=== PATIENT | male | born 1965 | race Caucasian/White ===

== ENCOUNTER 2018-05-31 12:09 | Emergency (ER) | payer BC ==
[2018-05-31 12:46] VITALS: BP 153/82; PULSE 69; RESP 18; TEMP 97.2
[2018-05-31] MEDS ORDERED: KETOROLAC 60 MG/2 ML VIAL IM STA (12:53)
[2018-05-31] MEDS ORDERED: LIDOCAINE 5% PATCH TOPICAL STA (12:53)
--- NOTE | 2018-05-31 12:56 | ED ---
General Adult HPI - General Chief complaint: Back Pain/Injury Stated complaint: BACK PAIN Time Seen by Provider: 05/31/18 12:37 Source: patient, RN notes reviewed Mode of arrival: ambulatory Limitations: no limitations - History of Present Illness Initial comments: Patient 53-year-old male presented to the emergency room today with chief complaint of increased lower back pain with radiation down the left leg. Patient states that pain radiates down the left foot. He admits that symptoms started this past weekend. He states his was admitted to the hospital he was sleeping in a chair. He states he woke up the following morning with increased pain in his lower back. Patient does admit the pain is worse with bending. Patient denies any bowel or bladder incontinence or retention. He denies any saddle anesthesia. Patient states that she tried some ibuprofen a few times but has had little relief. He doesn't that he went to chiropractor had x-rays performed recently. He states that they were talking about possible slipped disc. Patient was advised follow-up with orthopedics. He did make an appointment but is not until June 07. He states he called his family doctor was advised coming here to the emergency room. States is currently not taking any medicines for this. Patient denies any recent fever, chills, shortness of breath, chest pain, abdominal pain, nausea or vomiting, numbness or tingling, headaches or visual changes, or any other complaints. - Related Data Home Medications Medication Instructions Recorded Confirmed glipiZIDE/METFORMIN HCL 5 tab PO ONCE 08/04/14 08/04/14 [glipiZIDE/METFORMIN HCL 5-500 mg] metFORMIN HCL [Glucophage] 500 mg PO BID 08/04/14 08/04/14 Previous Rx's Medication Instructions Recorded Cyclobenzaprine [Flexeril] 10 mg PO TID #20 tab 05/31/18 Dexamethasone 0.75 mg PO DIRECTED #12 tablet 05/31/18 Ibuprofen [Motrin] 600 mg PO Q6HR PRN #40 day 05/31/18 Lidocaine [Lidoderm 5% Patch] 1 patch TRANSDERM DAILY #7 patch 05/31/18 Allergies Allergy/AdvReac Type Severity Reaction Status Date / Time No Known Allergies Allergy Verified 05/31/18 12:53 Review of Systems ROS Statement: Those systems with pertinent positive or pertinent negative responses have been documented in the HPI. ROS Other: All systems not noted in ROS Statement are negative. Past Medical History Past Medical History: Diabetes Mellitus History of Any Multi-Drug Resistant Organisms: None Reported Past Surgical History: Orthopedic Surgery Additional Past Surgical History / Comment(s): arthrooscopy left knee Past Anesthesia/Blood Transfusion Reactions: No Reported Reaction Past Psychological History: No Psychological Hx Reported Smoking Status: Former smoker Past Alcohol Use History: Occasional Past Drug Use History: None Reported General Exam - General Exam Comments Initial Comments: General: The patient is awake and alert, in no distress, and does not appear acutely ill. Eye: Pupils are equal, round and reactive to light. Extra-ocular movements are intact. No nystagmus. There is normal conjunctiva bilaterally. No signs of icterus. Ears, nose, mouth and throat: There are moist mucous membranes and no oral lesions. Neck: The neck is supple, there is no tenderness or JVD. Cardiovascular: There is a regular rate and rhythm. No murmur, rub or gallop is appreciated. Respiratory: Lungs are clear to auscultation, respirations are non-labored, breath sounds are equal. No wheezes, stridor, rales, or rhonchi. Musculoskeletal: Normal ROM. Normal appearance of some cervical, thoracic, lumbar spine. No step-off. No tenderness midline over the spinous processes. Patient does have paravertebral tenderness at L3L4 left side of the spine. Sensation intact. Strength 5/5. Pulses equal bilaterally 2+. Neurological: A&O x 3. CN II-XII intact, There are no obvious motor or sensory deficits. Coordination appears grossly intact. Speech is normal. Skin: Skin is warm and dry and no rashes or lesions are noted. Psychiatric: Cooperative, appropriate mood & affect, normal judgment. Limitations: no limitations Course Vital Signs 05/31/18 12:42 Temperature 97.2 F L Pulse Rate 69 Respiratory 18 Rate Blood Pressure 153/82 O2 Sat by Pulse 98 Oximetry Medical Decision Making - Medical Decision Making 52-year-old male presented to the emergency room for back pain that started after sleeping in a chair. Patient's pain reproduced on palpation to lower back. He does have radiation going down left leg. There is no bowel or bladder incontinence retention. No saddle anesthesia. Patient had recent x- rays performed. Patient does have point with orthopedics. Patient is not taking any medicines. Will be given anti-inflammatories, muscle relaxant, Lidoderm patch, and steroids. Patient is type II diabetic. Advised that this will affect his blood sugars. He is advised follow-up over the next 2 days return if symptoms increase worsen. Disposition Clinical Impression: Lumbar radiculopathy, acute Disposition: HOME SELF-CARE Condition: Good Instructions: Acute Low Back Pain (ED) Additional Instructions: Please use medication as discussed. Please follow-up with family doctor in the next 2 days of symptoms have not improved. Please return to emergency room if the symptoms increase or worsen or for any other concerns. Prescriptions: Cyclobenzaprine [Flexeril] 10 mg PO TID #20 tab Dexamethasone 0.75 mg PO DIRECTED #12 tablet Ibuprofen [Motrin] 600 mg PO Q6HR PRN #40 day PRN Reason: Pain Lidocaine [Lidoderm 5% Patch] 1 patch TRANSDERM DAILY #7 patch Is patient prescribed a controlled substance at d/c from ED?: No Referrals: Vik Choudhary DO [Primary Care Provider] - 1-2 days Time of Disposition: 12:56
== END 2018-05-31 13:31 | disposition home or self-care (01) ==
LOC: EC 12:09
DX: M54.16 Radiculopathy, lumbar region (principal); E11.9 Type 2 diabetes mellitus without complications; Z87.891 Personal history of nicotine dependence; Z79.84 Long term (current) use of oral hypoglycemic drugs
CPT/HCPCS: 96372; 99283

== ENCOUNTER → 2018-06-15 | Outpatient (CLI) | payer BC ==
--- NOTE | 2018-06-19 07:29 | NM ---
EXAMINATION TYPE: NM bone scan whole body DATE OF EXAM: 06/15/2018 COMPARISON: MR lumbar spine from outside institution 06/06/2018 HISTORY: Abnormal lumbar MRI, low back pain Delayed whole-body scanning was performed following the injection of 23.4 mCi Tc 99m MDP. Images acq uired 3 hours post injection. FINDINGS: Mild uptake in the lower lumbar spine compatible with degenerative disc disease. Remainder of the ske leton remarkable for mild uptake within the feet, knees, hips, shoulders and sternoclavicular joints likely due to degenerative change. Uptake within the maxilla and mandible likely due to periodontal d isease. No areas of abnormal increased or decreased uptake to suggest metastatic disease. Soft tissue uptake is normal. IMPRESSION: Metastatic disease is not evident. No corresponding hypermetabolic uptake on bone scan to the abnorma lities identified on lumbar spine MRI.
== END | disposition home or self-care (01) ==
LOC: RADNMMAIN 10:07
PROVIDERS: ATTEND Physical Medicine & Rehabilitation
DX: M54.16 Radiculopathy, lumbar region (principal); M41.26 Other idiopathic scoliosis, lumbar region; M16.0 Bilateral primary osteoarthritis of hip; E11.9 Type 2 diabetes mellitus without complications
CPT/HCPCS: 78306; A9503

== ENCOUNTER → 2019-04-17 | Outpatient (CLI) | payer OTHER ==
--- NOTE | 2019-04-17 15:15 | US ---
EXAMINATION TYPE: US pelvic limited DATE OF EXAM: 04/17/2019 COMPARISON: NONE CLINICAL HISTORY: R35.0 frequency of micturition. Pt states weak urine stream, unable to completely e mpty bladder Bladder appeared wnl, bilateral jets visualized Bladder volume= 221 ml Post void volume= 124 ml, normal is 50 mL. Impressions: 1. Moderate post void residual
== END | disposition home or self-care (01) ==
LOC: RADUSWWP 12:08
PROVIDERS: ATTEND Family Medicine
DX: N39.43 Post-void dribbling (principal)
CPT/HCPCS: 76857

== ENCOUNTER → 2019-06-10 | Outpatient (CLI) | payer MEDICAID ==
--- NOTE | 2019-06-10 15:47 | US ---
EXAMINATION TYPE: US bladder DATE OF EXAM: 06/10/2019 COMPARISON: US dated 04/17/2019 CLINICAL HISTORY: R33.9 Urinary Retention. EXAM MEASUREMENTS: Post Void Residual Volume: 123.8 mL Color Doppler performed to assess ureteral jets. Bilateral Jets seen: yes Normal Post Void Residual (less than 50ml): abnormal post void volume. Enlarged prostate is noted inferiorly/posteriorly and size = 37.5ml (normal prostate size is less than 30.0ml.) Patient requested copy of today's US to go to Dr Yandel Mejia. JJ IMPRESSION: 1. Abnormal post void residual within the urinary bladder measuring 123.8 mL. Neurogenic bladder or u rinary bladder outlet obstruction from prostatomegaly are considered. 2. Incidentally noted prostatomegaly.
== END ==
LOC: RADUSWWP 14:55
PROVIDERS: ATTEND Family Medicine
DX: R33.9 Retention of urine, unspecified (principal)
CPT/HCPCS: 76857

== ENCOUNTER → 2019-08-02 | Outpatient (CLI) | payer MEDICAID ==
[2019-08-02 14:35] LABS: Basophils # (A) 0.1 k/uL (0-0.2); Basophils % (A) 1 %; Eosinophils # (A) 0.4 k/uL (0-0.7); Eosinophils % (A) 5 %; HCT 48.4 % (39.0-53.0); HGB 16.2 gm/dL (13.0-17.5); Lymphocytes # (A) 1.9 k/uL (1.0-4.8); Lymphocytes % (A) 24 %; MCH 31.9 pg (25.0-35.0); MCHC 33.4 g/dL (31.0-37.0); MCV 95.5 fL (80.0-100.0); Mean Platelet Volume 6.8; Monocytes # (A) 0.4 k/uL (0-1.0); Monocytes % (A) 6 %; Neutrophils # (A) 4.8 k/uL (1.3-7.7); Neutrophils % (A) 63 %; Platelet Count 224 k/uL (150-450); RBC 5.07 m/uL (4.30-5.90); RDW 12.8 % (11.5-15.5); WBC 7.7 k/uL (3.8-10.6)
[2019-08-02 14:40] LABS: Appearance,Urine Clear (Clear); Bilirubin,Urine Negative (Negative); Blood,Urine Negative (Negative); Color,Urine Light Yellow; Glucose,Urine (UA) 4+ (Negative); Ketones,Urine Negative (Negative); Leukocyte Esterase,Urine Negative (Negative); Nitrite,Urine Negative (Negative); Protein,Urine Negative (Negative); Specific Gravity,Urine 1.027 (1.001-1.035); Urobilinogen,Urine <2.0 mg/dL (<2.0)
[2019-08-02 18:18] LABS: African American GFR (CKD) 97.8 (60.0-200.0); Albumin 4.5 g/dL (3.80-4.90); Albumin/Globulin Ratio 2.37 (1.60-3.17); Anion Gap 7.6 mmol/L (4.00-12.00); Carbon Dioxide 30.4 mmol/L (21.6-31.8); Globulin 1.9 g/dL (1.6-3.3); Non-African American GFR(CKD) 84.4 (60.0-200.0); Total Bilirubin 0.3 mg/dL (0.3-1.2); Total Protein 6.4 g/dL (6.2-8.2)
== END | disposition home or self-care (01) ==
LOC: LABWHC1 13:40
PROVIDERS: ATTEND Urology
DX: N40.1 Benign prostatic hyperplasia with lower urinary tract symptoms (principal)
CPT/HCPCS: 36415; 80053; 81003; 85025; 87086

== ENCOUNTER → 2019-08-03 | Outpatient (CLI) | payer MEDICAID ==
[2019-08-03 17:06] LABS: Chol/HDL Ratio 4.03; LDL Cholesterol,Calculated 66.8 mg/dL (0.0-131.0); VLDL Calculation 42.2 mg/dL (5.00-40.00)
[2019-08-03 18:41] LABS: Hemoglobin A1C 7.2 % (4.0-6.0)
== END | disposition home or self-care (01) ==
LOC: LABWHC1 08:13
PROVIDERS: ATTEND Family Medicine
DX: E11.65 Type 2 diabetes mellitus with hyperglycemia (principal)
CPT/HCPCS: 36415; 80061; 83036; 84450; 84460

== ENCOUNTER → 2019-09-04 | Outpatient (CLI) | payer MEDICAID | END | disposition home or self-care (01) | LOC: LABWHC1 09:02 | PROVIDERS: ATTEND Family Medicine | DX: R74.8 Abnormal levels of other serum enzymes (principal) | CPT/HCPCS: 36415; 84460 ==

== ENCOUNTER → 2020-11-12 | Outpatient (CLI) | payer MEDICAID ==
[2020-11-12 12:12] LABS: Appearance,Urine Clear (Clear); Bilirubin,Urine Negative (Negative); Blood,Urine Negative (Negative); Color,Urine Yellow; Glucose,Urine (UA) 4+ (Negative); Ketones,Urine 1+ (Negative); Leukocyte Esterase,Urine Negative (Negative); Nitrite,Urine Negative (Negative); Protein,Urine 1+ (Negative); RBC,Urine 1 /hpf (0-5); Specific Gravity,Urine 1.025 (1.001-1.035); Squamous Epithelial Cell,Urine <1 /hpf (0-4); Urobilinogen,Urine <2.0 mg/dL (<2.0); WBC,Urine 1 /hpf (0-5)
[2020-11-12 23:26] LABS: HCT 45.4 % (39.6-50.0); HGB 15.3 g/dL (13.0-17.0); MCHC 33.7 g/dL (32.0-37.0); MCV 97.8 fL (80.0-97.0); Mean Platelet Volume 11.3 fL (9.5-12.2); Platelet Count 196 X 10*3/uL (140-440); RBC 4.64 X 10*6/uL (4.40-5.60); RDW 12.8 % (11.5-14.5); WBC 8.08 X 10*3/uL (4.50-10.00)
[2020-11-13 02:59] LABS: T4, Free (Free Thyroxine) 1.1 ng/dL (0.80-1.80)
[2020-11-13 03:53] LABS: African American GFR (CKD) 97.1 (60.0-200.0); Albumin 4.7 g/dL (3.80-4.90); Albumin/Globulin Ratio 2.24 (1.60-3.17); Anion Gap 14.9 mmol/L (4.00-12.00); Calcium 9.9 mg/dL (8.7-10.3); Carbon Dioxide 20.1 mmol/L (21.6-31.8); Chol/HDL Ratio 5.64; Globulin 2.1 g/dL (1.6-3.3); Non-African American GFR(CKD) 83.8 (60.0-200.0); Potassium 4.4 mmol/L (3.5-5.5); Total Bilirubin 0.4 mg/dL (0.3-1.2); Total Protein 6.8 g/dL (6.2-8.2)
[2020-11-13 06:12] LABS: Urine Creatinine 82.3 mg/dL
== END | disposition home or self-care (01) ==
LOC: LABWHC1 10:55
PROVIDERS: ATTEND Family Medicine
DX: Z00.00 Encounter for general adult medical examination without abnormal findings (principal); E11.65 Type 2 diabetes mellitus with hyperglycemia; E66.9 Obesity, unspecified
CPT/HCPCS: 84439; 80061; 80053; 84443; 85027; 81001; 83721; 82306; 82043; 82570; 83036; 36415; G0103

== ENCOUNTER → 2020-12-01 | Outpatient (CLI) | payer MEDICAID | END | disposition home or self-care (01) | LOC: LABWHC1 12:52 | PROVIDERS: ATTEND Family Medicine | DX: R74.8 Abnormal levels of other serum enzymes (principal) | CPT/HCPCS: 36415; 84460 ==

== ENCOUNTER → 2020-12-16 | Outpatient (CLI) | payer MEDICAID ==
[2020-12-17 18:59] LABS: ALT 66 U/L (10-49); AST 36 U/L (14-35); Albumin/Globulin Ratio 2.33 (1.60-3.17); Alkaline Phosphatase 72 U/L (41-126); Bilirubin, Conjugated <0.20 mg/dL (0.20-0.40); GGT 68 U/L (0-73); Globulin 2.1 g/dL (1.6-3.3); Total Bilirubin 0.5 mg/dL (0.3-1.2)
== END | disposition home or self-care (01) ==
LOC: LABWHC1 12:49
PROVIDERS: ATTEND Family Medicine
DX: R74.8 Abnormal levels of other serum enzymes (principal)
CPT/HCPCS: 36415; 80076; 82977

== ENCOUNTER → 2021-01-26 | Outpatient (CLI) | payer MEDICAID ==
[2021-01-26 22:25] LABS: ALT 56 U/L (10-49); AST 26 U/L (14-35)
== END | disposition home or self-care (01) ==
LOC: LABWHC1 14:11
PROVIDERS: ATTEND Family Medicine
DX: R74.01 Elevation of levels of liver transaminase levels (principal)
CPT/HCPCS: 36415; 84450; 84460

== ENCOUNTER → 2021-02-18 | Outpatient (CLI) | payer MEDICAID ==
[2021-02-18 18:59] LABS: Basophils # (A) 0.08 X 10*3/uL (0.00-0.10); Basophils % (A) 0.8 %; Eosinophils # (A) 0.74 X 10*3/uL (0.04-0.35); Eosinophils % (A) 7.6 %; HCT 47.7 % (39.6-50.0); HGB 15.9 g/dL (13.0-17.0); Lymphocytes # (A) 2.14 X 10*3/uL (0.90-5.00); MCH 32.1 pg (27.0-32.0); MCHC 33.3 g/dL (32.0-37.0); MCV 96.2 fL (80.0-97.0); Mean Platelet Volume 10.6 fL (9.5-12.2); Monocytes # (A) 0.79 X 10*3/uL (0.20-1.00); Monocytes % (A) 8.1 %; Neutrophils # (A) 5.97 X 10*3/uL (1.80-7.70); Neutrophils % (A) 61.3 %; Platelet Count 201 X 10*3/uL (140-440); RBC 4.96 X 10*6/uL (4.40-5.60); RDW 11.9 % (11.5-14.5); WBC 9.74 X 10*3/uL (4.50-10.00)
[2021-02-18 19:47] LABS: Hemoglobin A1C 7.6 % (4.0-6.0)
[2021-02-18 20:18] LABS: African American GFR (CKD) 70.2 (60.0-200.0); Albumin 4.8 g/dL (3.80-4.90); Albumin/Globulin Ratio 1.92 (1.60-3.17); Anion Gap 8.2 mmol/L (4.00-12.00); Calcium 10.6 mg/dL (8.7-10.3); Carbon Dioxide 29.8 mmol/L (21.6-31.8); Chol/HDL Ratio 4.76; Globulin 2.5 g/dL (1.6-3.3); LDL Cholesterol,Calculated 72.2 mg/dL (0.0-131.0); Non-African American GFR(CKD) 60.6 (60.0-200.0); Potassium 4.6 mmol/L (3.5-5.5); Total Bilirubin 0.7 mg/dL (0.2-1.2); Total Protein 7.3 g/dL (6.2-8.2); VLDL Calculation 51.8 mg/dL (5.00-40.00)
== END | disposition home or self-care (01) ==
LOC: LABWHC1 11:21
PROVIDERS: ATTEND Family Medicine
DX: E78.5 Hyperlipidemia, unspecified (principal); E11.65 Type 2 diabetes mellitus with hyperglycemia; R10.13 Epigastric pain
CPT/HCPCS: 36415; 80053; 80061; 82150; 83013; 83036; 83690; 85025

== ENCOUNTER → 2021-03-03 | Outpatient (CLI) | payer MEDICAID ==
--- NOTE | 2021-03-03 12:28 | US ---
EXAMINATION TYPE: US liver DATE OF EXAM: 03/03/2021 COMPARISON: NONE CLINICAL HISTORY: R94.5 Abnormal results of liver function. Takes multiple medications EXAM MEASUREMENTS: Liver Length: 17.7 cm Gallbladder Wall: 0.2 cm CBD: 0.5 cm Right Kidney: 11.7 x 5.3 x 5.3 cm Pancreas: mid body and tail obscured by bowel gas Liver: Diffuse fatty infiltration. No discrete hepatic mass or intrahepatic biliary dilatation on son ographic study. Gallbladder: wnl Evidence for sonographic Anderson's sign: no CBD: wnl Right Kidney: No hydronephrosis or masses seen There is diffuse fatty infiltration of the liver. The pancreas is poorly visualized due to overlying bowel gas. No gallstones, sludge, or pericholecystic fluid. Gallbladder wall is within normal limits. The common duct is within normal limits measuring 4.6 mm. No right renal calculi or hydronephrosis. IMPRESSION: 1. The pancreas is poorly visualized due to overlying bowel gas. 2. Hepatic steatosis. 3. No gallstones.
== END | disposition home or self-care (01) ==
LOC: RADUSWWP 07:02
PROVIDERS: ATTEND Family Medicine
DX: K76.0 Fatty (change of) liver, not elsewhere classified (principal)
CPT/HCPCS: 76705

== ENCOUNTER → 2021-03-04 | Outpatient (CLI) | payer MEDICAID ==
--- NOTE | 2021-03-04 17:36 | FL ---
EXAMINATION TYPE: FL barium swallow DATE OF EXAM: 03/04/2021 CLINICAL HISTORY: Patient has a history of reflux. Patient had constipation and diarrhea. TECHNIQUE: A double contrast esophagram is performed utilizing air and barium. A total of 53 second s of fluoroscopic time was utilized during procedure and multiple images obtained. COMPARISON: None FINDINGS: The esophagus shows normal motility and emptying into the stomach. There is a small hiatal hernia. There is gastroesophageal reflux to the level of the mid to upper thoracic esophagus with Rita henrietta maneuvers and spontaneously. IMPRESSION: 1. Small hiatal hernia. 2. Prominent gastroesophageal reflux to the proximal to mid thoracic esophagus spontaneously and with Valsalva maneuvers.
== END | disposition home or self-care (01) ==
LOC: RADUSWWP 09:48
PROVIDERS: ATTEND Family Medicine
DX: K44.9 Diaphragmatic hernia without obstruction or gangrene (principal); K21.9 Gastro-esophageal reflux disease without esophagitis
CPT/HCPCS: 74220

== ENCOUNTER → 2021-03-19 | Outpatient (CLI) | payer MEDICAID ==
--- NOTE | 2021-03-19 11:54 | ECHOS ---
STRESS ECHOCARDIOGRAM INDICATION: Chest pain. CLINICAL INFORMATION: Baseline EKG shows sinus rhythm with incomplete right bundle branch block. The patient exercised on Elliot protocol for a total of 9.5 minutes, achieving 11 METs, 91% of predicted maximal heart rate without chest pain or diagnostic ST-segment depression. Baseline echo shows normal left ventricular size wall motion systolic function. Postexercise there is normal hyperdynamic response of all segments of myocardium noted. CONCLUSIONS: 1. Good exercise tolerance. 2. Negative stress test by EKG criteria. 3. Negative stress echo. MMODL / IJN: [id number] /
== END | disposition home or self-care (01) ==
LOC: RADNMMAIN 08:58
PROVIDERS: ATTEND Family Medicine
DX: R07.89 Other chest pain (principal)
CPT/HCPCS: 93351

== ENCOUNTER 2022-02-11 08:27 | Day surgery (SDC) | payer MEDICAID, MEDICARE ==
[2022-02-09 14:29] VITALS: BMI 32.4
[~2022-02-11 08:27] MED LIST: LIDOCAINE 1% (10MG/ML) FOR IV START INTRADERMA PRN
[2022-02-11 09:00] VITALS: TEMP 97.7
[2022-02-11] MEDS: LACTATED RINGERS 1,000 ML IV SCH ×2 (09:01→09:27)
[2022-02-11 09:07] LABS: Glucose,Whole Blood 161 mg/dL (70-110)
[2022-02-11] MEDS ORDERED: PROPOFOL 10 MG/ML 20 ML VIAL IV ONE (09:28)
--- NOTE | 2022-02-11 09:50 | P.PCN ---
Date of Procedure: 02/11/22 Procedure(s) Performed: BRIEF HISTORY: Patient is a 57-year-old pleasant white male scheduled for an elective colonoscopy as a part of screening for colon cancer and family history of colon cancer. His father and maternal grandmother was diagnosed with colon cancer. PROCEDURE PERFORMED: Colonoscopy With snare polyp rectum PREOPERATIVE DIAGNOSIS: screening for colon cancer and family history of colon cancer IV sedation per Anesthesia. PROCEDURE: After informed consent was obtained, the patient, was brought into the endoscopy unit. IV sedation was administered by Anesthesia under continuous monitoring. Digital rectal examination was normal. Initially the Olympus CF-160 flexible video colonoscope was then inserted in the rectum, gradually advanced into the cecum without any difficulty. Careful examination was performed as the scope was gradually being withdrawn. Ileocecal valve and the appendiceal orifice were visualized and appeared normal. Prep was excellent. Mucosa of the cecum, appeared normal. In the ascending colon there was a 3 mm polyp removed by snare polypectomy. In the hepatic flexure there was a 5 mm polyp removed snare polypectomy. In the transverse colon there were 2 polyps measuring 5 mm in size removed by snare polypectomy. In the descending colon there was a 5 mm and 1 cm polyp removed by snare polypectomy. Rest of the descending colon, sigmoid colon, and rectum appeared normal. Retroflexion was performed in the rectum and no lesions were seen. The patient tolerated the procedure well. IMPRESSION: 5 mm ascending colon polyp status post polypectomy 3 mm hepatic flexure polyp status post polypectomy 5 mm 2 transverse colon polyp status post polypectomy 5 mm and 1 cm descending colon polyp status post polypectomy RECOMMENDATIONS: Findings of this examination were discussed with the patient. He was advised to follow with the biopsy results. If the biopsy with adenoma he can have a repeat colonoscopy in 3 years.
[2022-02-11 10:20] VITALS: BP 130/70; PULSE 77; RESP 20
== END 2022-02-11 10:22 | disposition home or self-care (01) ==
LOC: ORWHC2ENDO 08:27
PROVIDERS: ATTEND Internal Medicine Gastroenterology
DX: D12.3 Benign neoplasm of transverse colon (principal); D12.4 Benign neoplasm of descending colon; Z80.0 Family history of malignant neoplasm of digestive organs; I10 Essential (primary) hypertension; E78.5 Hyperlipidemia, unspecified; E11.9 Type 2 diabetes mellitus without complications; K21.9 Gastro-esophageal reflux disease without esophagitis; Z79.899 Other long term (current) drug therapy; Z87.891 Personal history of nicotine dependence; Z79.84 Long term (current) use of oral hypoglycemic drugs
CPT/HCPCS: 88305; 45385; J2704

== ENCOUNTER → 2022-02-22 | Outpatient (CLI) | payer MEDICARE ==
[2022-02-22 14:54] LABS: African American GFR (CKD) >90 (>60 ml/min/1.73 sqM); Blood Urea Nitrogen 17 mg/dL (9-20); Non-African American GFR(CKD) >90 (>60 ml/min/1.73 sqM)
--- NOTE | 2022-02-22 23:11 | CT ---
EXAMINATION TYPE: CT urogram wo/w con DATE OF EXAM: 02/22/2022 INDICATION: Microscopic hematuria CT DLP: 4335.9 mGy.cm Automated Exposure Control for Dose Reduction was Utilized. TECHNIQUE AND CONTRAST: CT scan of the abdomen and pelvis is performed without and with IV Contrast, as per CT urogram protoc ol. The patient injected with 70 mL of Isovue 300. 3-D reconstruction images were generated on an ind [employer] workstation and reviewed. COMPARISON: None available FINDINGS: No radiodense urinary calculi. No hydroureter or hydronephrosis. Bilateral perinephric fat stranding and reactive fluid, nonspecific. Millimetric hypodensity seen at the lower pole of the left kidney li janis representing a small cyst with questionable thin septation within. Unremarkable kidneys otherwis e. No definite filling defect within the renal collecting system or the ureters. No suspicious ureteric lesion. Asymmetrical enlargement of the prostate. It indents and elevates the urinary bladder base. P lease correlate with PSA level. Grossly unremarkable urinary bladder otherwise. Enlarged liver measuring 20 cm with signs of hepatic steatosis. Unremarkable gallbladder, pancreas, s pleen and adrenals. Scattered arterial atherosclerotic calcifications. Unremarkable nondistended stom ach, duodenum and small bowel. Scattered uncomplicated colonic diverticulosis. Normal appendix. No pathologically enlarged abdominal or pelvic lymph nodes. No sizable ascites. Unremarkable lung bases. Degenerative changes of the lowe r thoracic and lower lumbar spine. IMPRESSION: No radiodense urinary calculi. No hydroureter or hydronephrosis. Asymmetrically enlarged prostate as described above, please correlate with PSA level. Otherwise no definite suspicious renal, ureteric or urinary bladder lesion. Other findings as described above.
== END | disposition home or self-care (01) ==
LOC: RADCTMAIN 14:13
PROVIDERS: ATTEND Urology
DX: N40.0 Benign prostatic hyperplasia without lower urinary tract symptoms (principal)
CPT/HCPCS: 82565; 84520; 74178; 36415; 74400; Q9967

== ENCOUNTER → 2022-09-27 | Outpatient (CLI) | payer MEDICARE ==
--- NOTE | 2022-09-27 14:32 | P.SLEEP ---
History of Present Illness H&P Date: 09/27/22 This is a 57-year-old male patient referred to me for evaluation of sleep apnea. The patient is currently retired. Used to work at the [employer], a local [employer] and he quit his job as the patient was dealing with his ill was suffered from Alzheimer's dementia. She ultimately and the patient is currently remarried. His is complaining of loud snoring, and he has been told to stop breathing in the middle of the night. The patient gets more trouble when he sleeps on his back and he accordingly tries to sleep on his side. Over the past 5 years, the patient has lost approximately 5-10 pounds. He remains to be obese and he carries a body mass index of 33.7. He goes to bed at around 10 PM and he wakes up 4 AM in the morning. He is averaging around 6 hours of sleep. No issues with nocturia. Occasional wakes up in the middle of the night choking and gasping however this is not frequent. No sleep walking. No sleep talking. No anxiety. No depression. His current Kistler score is 11. He is an ex-smoker. He does not drink alcohol. He drinks soda throughout the day. No history of any substance abuse. He is known to have other comorbidities including diabetes mellitus, hypertension and hyperlipidemia. No cardiovascular complications such as stroke or congestion heart failure. No history of anxiety. Most of depression. No sleepwalking. No sleep talking. No grinding. No anxiety or panic attacks. No night terrors. No dreams. No sleep paralysis. No cataplexy. No hallucinations. Review of Systems Constitutional: Reports daytime sleepiness, Reports fatigue Eyes: denies as per HPI, denies blurred vision, denies bulging eye, denies decreased vision, denies diplopia, denies discharge, denies dry eye, denies irritation, denies itching, denies pain, denies photophobia, denies loss of peripheral vision, denies loss of vision, denies tunnel vision/blind spots Ears: deny: decreased hearing, ear discharge, earache, tinnitus Ears, nose, mouth and throat: Reports as per HPI Breasts: absent: as per HPI, gynecomastia Cardiovascular: Reports as per HPI Respiratory: Reports snoring Gastrointestinal: Reports as per HPI Genitourinary: Reports as per HPI Musculoskeletal: Reports as per HPI Musculoskeletal: absent: ankle pain, ankle stiffness, ankle swelling Integumentary: Reports as per HPI Neurological: Reports as per HPI Psychiatric: Reports as per HPI Endocrine: Reports as per HPI Hematologic/Lymphatic: Reports as per HPI Allergic/Immunologic: Reports as per HPI Past Medical History Past Medical History: Diabetes Mellitus, GERD/Reflux, Hyperlipidemia, Hypertension Additional Past Medical History / Comment(s): CHRONIC BACK PAIN-DDD History of Any Multi-Drug Resistant Organisms: None Reported Past Surgical History: Orthopedic Surgery Additional Past Surgical History / Comment(s): arthroscopy left knee, COLONOSCOPY, PLATE IN ARM AND THEN REMOVED AGE 9 Past Anesthesia/Blood Transfusion Reactions: No Reported Reaction Smoking Status: Former smoker - Past Family History Father Family Medical History: Cancer Medications and Allergies Home Medications Medication Instructions Recorded Confirmed Type metFORMIN HCL [Glucophage] 1,000 mg PO BID 08/04/14 02/11/22 History Cholecalciferol (Vitamin D3) 2,000 unit PO DAILY 05/31/18 02/11/22 History [Vitamin D3] Ibuprofen [Motrin] 600 mg PO Q6HR PRN #40 day 05/31/18 02/11/22 Rx Multivit-Min/FA/Lycopen/Lutein 1 tab PO DAILY 05/31/18 02/11/22 History [Centrum Silver Tablet] Pravastatin Sodium [Pravachol] 10 mg PO DAILY 05/31/18 02/11/22 History hydroCHLOROthiazide [Hydrodiuril] 25 mg PO [id number] 05/31/18 02/11/22 History lisinopriL 40 mg PO DAILY 05/31/18 02/11/22 History Cider Vinegar [Apple Cider Vinegar] 300 mg PO BID 02/09/22 02/11/22 History Dulaglutide [Trulicity] 0.75 mg SQ FR 02/09/22 02/11/22 History L.acidoph,Paracasei, B.lactis 1 each PO DAILY 02/09/22 02/11/22 History [Probiotic] Omeprazole 20 mg PO DAILY PRN 02/09/22 02/11/22 History Allergies Allergy/AdvReac Type Severity Reaction Status Date / Time No Known Allergies Allergy Verified 02/11/22 08:43 Physical Exam BP is 133/74 with a pulse of 70 and a respiration of 16 with a temperature of 97.1 and the patient's pulse ox is 97% on room air oxygen. His Kistler score is at 11. Body mass index is 33.7. Weight is 250 pounds. The patient is obese and the patient is calm and comfortable, not in acute respiratory distress. Head exam was generally normal. There was no scleral icterus or corneal arcus. Mucous membranes were moist. Neck was supple and without jugular venous distension, thyromegaly, or carotid bruits. Carotids were easily palpable bilaterally. There was no adenopathy. The patient is a Mallampati class IV with significant crowding of the posterior oropharynx and the patient also has a slight overbite. Lungs were clear to auscultation and percussion, and with normal diaphragmatic excursion. No wheezes or rales were noted. Cardiac exam revealed the PMI to be normally situated and sized. The rhythm was regular and no extrasystoles were noted during several minutes of auscultation. The first and second heart sounds were normal and physiologic splitting of the second heart sound was noted. There were no murmurs, rubs, clicks, or gallops. Abdominal exam revealed normal bowel sounds. The abdomen was soft, non-tender, and without masses, organomegaly, or appreciable enlargement of the abdominal aorta. Examination of the extremities revealed easily palpable radial, femoral and pedal pulses. There was no cyanosis, clubbing or edema. Examination of the skin revealed no evidence of significant rashes, suspicious appearing nevi or other concerning lesions. Neurologically, the patient is awake and alert and the patient does not have any focal neurological deficit. Cranial nerves are essentially intact. Assessment and Plan Plan: Impression Chronic hypersomnia with an Kistler score of 11, possible obstructive sleep apnea and this is to be further investigated. History of loud snoring and witnessed apneas Obesity with a BMI of 33.7 crowding of the posterior oropharynx with a Mallampati class IV Hypertension Hyperlipidemia Diabetes mellitus type 2 Chronic back pain Plan We'll discuss issues related to the patient's sleep hygiene We'll maintain regular sleep schedule We are going to do a home sleep study to reevaluate this patient for obstructive sleep apnea and treat accordingly Treat comorbidities including his chronic back pain We'll continue to follow Sleep Note - Sleep Note Sleep Note: Temperature: Pulse Rate: Respiratory Rate: Blood Pressure: SpO2: Height: Weight: BMI: Neck Circumference:
== END ==
LOC: SLEEP 13:30
PROVIDERS: ATTEND Internal Medicine Critical Care Medicine
DX: I10 Essential (primary) hypertension (principal); E78.5 Hyperlipidemia, unspecified; E11.9 Type 2 diabetes mellitus without complications; M54.50 Low back pain, unspecified; E66.9 Obesity, unspecified; Z68.33 Body mass index [BMI] 33.0-33.9, adult; G47.10 Hypersomnia, unspecified; R06.83 Snoring; G47.30 Sleep apnea, unspecified; K21.9 Gastro-esophageal reflux disease without esophagitis; Z87.891 Personal history of nicotine dependence; Z79.84 Long term (current) use of oral hypoglycemic drugs; Z79.899 Other long term (current) drug therapy
CPT/HCPCS: 99211

== ENCOUNTER 2023-03-27 06:20 | Day surgery (SDC) | payer MEDICARE ==
[2023-03-27] MEDS: SODIUM CHLORIDE 0.9% 1,000 ML in EMPTY BAG 1 BAG IV SCH ×2 (07:00→18:23)
[2023-03-27] MEDS ORDERED: VERAPAMIL 2.5 MG/ML 2 ML AMP ONE (07:14)
[2023-03-27 07:15] LABS: Glucose,Whole Blood 157 mg/dL (70-110)
[2023-03-27] MEDS ORDERED: IV FLUID CONTINUATION 900 ML IV ONE (07:17)
[2023-03-27] MEDS ORDERED: ALPRAZolam 0.5 MG TAB PO PRN (07:27)
[2023-03-27] MEDS ORDERED: ALPRAZolam 0.25 MG TAB PO PRN (07:27)
[2023-03-27] MEDS ORDERED: ASPIRIN 325 MG TAB PO STA (07:27)
[2023-03-27] MEDS ORDERED: NITROGLYCERIN SL TABS 0.4 MG TAB SUBLINGUAL PRN ×2 (07:27→09:42)
[2023-03-27] MEDS ORDERED: fentaNYL (PF) 50 MCG/ML 2 ML AMP ONE (07:31)
[2023-03-27] MEDS ORDERED: HEPARIN SODIUM 1,000 UN/ML (10ML VL) ONE (07:33)
[2023-03-27] MEDS ORDERED: fentaNYL (PF) 50 MCG/ML 2 ML AMP IVP ONE (07:34)
[2023-03-27] MEDS: MIDAZOLAM 2 MG/2 ML VIAL IVP ONE ×2 (07:36→08:54)
[2023-03-27] MEDS ORDERED: LIDOCAINE 1% INJ 10MG/ML (5 ML VIAL-PF) SQ ONE (07:36)
[2023-03-27] MEDS ORDERED: VERAPAMIL SYRINGE (5 MG/10 ML) INTRAARTER ONE (07:37)
[2023-03-27] MEDS ORDERED: CLOPIDOGREL 75 MG TAB ONE (07:49)
[2023-03-27] MEDS ORDERED: CLOPIDOGREL 75 MG TAB PO ONE (07:53)
[2023-03-27] MEDS ORDERED: IOPAMIDOL-370 100ML BTL INJ ONE ×4 (07:56→09:31)
[2023-03-27] MEDS ORDERED: ZOLPIDEM 5 MG TAB PO PRN (09:42)
[2023-03-27] MEDS ORDERED: MAG HYDROX/AL HYDROX/SIMETH 30 ML CUP PO PRN (09:42)
[2023-03-27] MEDS ORDERED: ATROPINE SULFATE 0.1 MG/ML 10ML SYRINGE IV PRN (09:42)
[2023-03-27] MEDS ORDERED: RX INFO: IV CONTRAST WAS GIVEN 1 EACH MISC MISCELLANE PRN (09:42)
[2023-03-27] MEDS ORDERED: SODIUM CHLORIDE 0.9% 1,000 ML in EMPTY BAG 1 BAG IV SCH (09:45)
--- NOTE | 2023-03-27 09:53 | P.CARDCATH ---
Date of Procedure: 03/27/23 Description of Procedure: Cardiac Catheterization: The patient is a 58-year-old male with known history of hypertension, hyperlipidemia, diabetes was been complaining of chest discomfort and had an abnormal MPI. Recommendations were made regarding cardiac catheterization, the risks and the complications were discussed with the patient who is in full understanding and agreement. Procedure Description: Patient was brought to laboratory technologist in fasting semi-sedated state after receiving Fentanyl and Benadryl achieiving moderate conscious sedated state. Using Xylocaine Anesthesia and Seldinger technique, a 6-Serbian sheath was introduced in the right radial artery . Subsequently, selective coronary angiography was performed using a 5-Serbian 3.5 bend Maury catheter. Multiple views of the coronary artery including hemiaxial views were obtained. The 5-Serbian pigtail catheter was used to cross the aortic valve and LVEDP was calculated. PCI: After removing the catheters 6-Serbian EBU 3.75 catheter was introduced and after cannulating the left main a 0.014 BMW wire was positioned in the distal diagonal branch. Attempt to advance a 2.5 x 12 mm Treck are unsuccessful, that balloon was removed and a 1.0 x 8 mm Sapphire balloon was advanced and multiple inflations were done subsequently the balloon was removed and attempt to advance the 2.5 x 12 mm balloon were unsuccessful that balloon was removed and another 0.014 BMW J-wire was advanced in a mallory fashion but in spite of that the balloon could not be advanced. At that point the wire was removed and a 6- Serbian guide liner was advanced and at 20 X 8 mm treck balloon was advanced and multiple inflations were done up to 14 benjamin that were unsuccessful in opening up the lesion. Subsequently attempt to advance a 1.5, 2.0-2.5 NC balloon were unsuccessful. The Sapphire balloon was readvanced and multiple inflations were done subsequently 2.0 x 12 mm Treck balloon was advanced and the lesion was opened at 15 benjamin with rupture. Subsequently a 2.5 by 12 mm NC Treck balloon was advanced and inflated at 10 benjamin and after removing the balloon 2.5 x 18 mm Xience du point stent was deployed at 16 benjamin. After appropriate wait the wire was withdrawn back and again catheter and images were obtained and revealed stable successful stenting. Following that, catheter and sheath were removed. Hemostasis was obtained with deployment of TR band . There was no immediate complication. Patient was returned to room in stable condition. Of note, the pat ient received a total of 7000 units of intravenous heparin as well as intra- arterial verapamil. His ACT was monitored, he received a dose of clopidogrel. He had chest discomfort ultrasound at the end of the procedure. Findings: Fluoroscopy: Calcifications of the left, LAD and RCA was noted. Left main: This is a large size vessel trifurcating into LAD, diagonal branch and ramus intermedius, left main has no obstructive disease LAD: This is a large size vessel, reaching to the apex giving rise to a very proximal large diagonal branch. The LAD after the diagonal branch has a 40% plaque. The diagonal branch proximally has a tubular lesion with stenosis up to 95%. The mid LAD has a 30-40% plaque. Left circumflex: This is a nondominant vessel giving rise to small obtuse marginal branch distally, the left circumflex has mild intimal disease proximally with no high-grade stenosis RCA: This is a large dominant vessel bifurcating distally into PDA and PLV. The proximal and mid RCA has diffuse intimal disease with area of stenosis up to 40% Ramus intermedius: This vessel has a 30-40% plaque proximally with no high-grade stenosis in the mid and distal segment Left Ventriculogram: Not performed Hemodynamics: He was no gradient across the aortic valve , LVEDP was 14-16 mmHg Conclusion: 1. Calcified coronary arteries 2. Severe stenosis in the first diagonal branch 3. Mild disease involving the LAD, RCA, ramus intermedius and left circumflex 4. Successful stenting of the first diagonal branch with reduction of stenosis from 95% to 0% Recommendations: The patient will continue on aspirin and Plavix without any disruption for 6 months in addition to aggressive coronary risks modifications. The findings and the recommendations were discussed with the patient and the family and they were in full understanding and agreement. Duration of sedation is 118 minutes.
[2023-03-27 14:19] VITALS: BMI 30.4
[2023-03-28] MEDS: SODIUM CHLORIDE 0.9% 1,000 ML in EMPTY BAG 1 BAG IV SCH (04:31)
[2023-03-28 06:24] LABS: Glucose,Whole Blood 151 mg/dL (70-110)
[2023-03-28 06:35] LABS: Basophils # (A) 0.1 k/uL (0-0.2); Basophils % (A) 1 %; Eosinophils # (A) 0.5 k/uL (0-0.7); Eosinophils % (A) 6 %; HCT 40.6 % (39.0-53.0); HGB 13.8 gm/dL (13.0-17.5); Lymphocytes # (A) 1.6 k/uL (1.0-4.8); Lymphocytes % (A) 19 %; MCH 32.8 pg (25.0-35.0); MCV 96.2 fL (80.0-100.0); Mean Platelet Volume 8.1; Monocytes # (A) 0.5 k/uL (0-1.0); Monocytes % (A) 6 %; Neutrophils # (A) 5.4 k/uL (1.3-7.7); Neutrophils % (A) 67 %; Platelet Count 167 k/uL (150-450); RBC 4.22 m/uL (4.30-5.90); RDW 12.7 % (11.5-15.5); WBC 8.1 k/uL (3.8-10.6)
[2023-03-28 06:52] LABS: African American GFR (CKD) >90 (>60 ml/min/1.73 sqM); Anion Gap 5 mmol/L; Blood Urea Nitrogen 11 mg/dL (9-20); Calcium 9.3 mg/dL (8.4-10.2); Carbon Dioxide 29 mmol/L (22-30); Chloride 102 mmol/L (98-107); Glucose 146 mg/dL (74-99); Non-African American GFR(CKD) >90 (>60 ml/min/1.73 sqM); Potassium 4.3 mmol/L (3.5-5.1); Sodium 136 mmol/L (137-145)
--- NOTE | 2023-03-28 07:21 | P.PN ---
Subjective Progress Note Date: 03/28/23 PROGRESS NOTE The patient is a 58-year-old male with a history of hypertension, hyperlipidemia, diabetes who was been complaining of chest discomfort had an abnormal MPI and underwent cardiac catheterization yesterday and was found to have significant obstructive disease in the first diagonal branch and underwent stenting of that vessel. He is doing well this morning. He denies any chest discomfort, dizziness or palpitations. He continues to be in sinus mechanism. Medications: Aspirin, Lipitor 80 mg daily, Plavix 75 mg daily, glipizide 2.5 mg twice a day, lisinopril 40 mg daily, PHYSICAL EXAMINATION: Blood pressure 110/50 heart rate 70 LUNGS: Clear to auscultation HEART: Regular rate and rhythm, S1, S2. No S3. No systolic murmur ABDOMEN: Soft, nontender, no organomegaly EXTREMETIES: No edema, right radial pulse intact LAB: Potassium 4.3, BUN 11, creatinine 0.87. EKG shows sinus mechanism with no acute changes IMPRESSION: 1. Status post stenting of the diagonal branch 2. Mild triple-vessel disease 3. Hypertension 4. Hyperlipidemia 5. History of diabetes PLAN: 1. Continue present therapy 2. Increase physical activity 3. Discharged home today 4. And follow-up in one week Objective - Vital Signs Vital signs: Vital Signs Temp 97.9 F 03/28/23 03:03 Pulse 71 03/28/23 03:03 Resp 15 03/28/23 03:03 BP 110/58 03/28/23 03:03 Pulse Ox 99 03/28/23 03:03 FiO2 Intake & Output 03/27/23 03/28/23 03/28/23 18:59 06:59 18:59 Intake Total 875 Output Total 800 Balance 75 Weight 101.7 kg Intake: IV 875 Output: Urine 800 Other: Voiding Method Toilet # Voids 2 1 - Labs CBC & Chem 7: 03/28/23 06:05 03/28/23 06:05 Labs: Abnormal Lab Results - Last 24 Hours (Table) 03/28/23 03/28/23 03/28/23 Range/Units 06:05 06:05 06:22 RBC 4.22 L (4.30-5.90) m/uL Sodium 136 L (137-145) mmol/L Glucose 146 H (74-99) mg/dL POC Glucose (mg/dL) 151 H (70-110) mg/dL
[2023-03-28] MEDS ORDERED: PANTOPRAZOLE 40 MG TABLET PO SCH (07:30)
[2023-03-28 08:16] VITALS: BP 126/84; PULSE 64; RESP 16; TEMP 98.3
[2023-03-28] MEDS ORDERED: ATORVASTATIN 80 MG TAB PO SCH (09:00)
[2023-03-28] MEDS ORDERED: ASPIRIN 81 MG PO SCH (09:00)
[2023-03-28] MEDS ORDERED: CLOPIDOGREL 75 MG TAB PO SCH (09:00)
[2023-03-28] MEDS ORDERED: lisinopriL 20 MG TAB PO SCH (09:00)
== END 2023-03-28 09:26 | disposition home or self-care (01) ==
LOC: CATHCVL 06:20 → 6NMEDSUR 09:28 → CATHCVL 03-28 09:26
PROVIDERS: ATTEND Internal Medicine Interventional Cardiology
DX: I25.10 Atherosclerotic heart disease of native coronary artery without angina pectoris (principal); I10 Essential (primary) hypertension; E78.5 Hyperlipidemia, unspecified; E11.9 Type 2 diabetes mellitus without complications; Z79.899 Other long term (current) drug therapy
CPT/HCPCS: 93458; 80048; 85025; C9600; C1769 ×3; C1887 ×2; C1894; C1725 ×8; C1874; J2250; J2001; J3010; J1644; Q9967

== ENCOUNTER 2023-04-12 13:54 | Emergency (ER) | payer MEDICARE ==
--- NOTE | 2023-04-12 16:18 | ED ---
General Adult HPI - General Chief complaint: Extremity Problem,Nontraumatic Stated complaint: R Leg pain,Sent by PCP,Heart Stent Placed 03/27here Time Seen by Provider: 04/12/23 16:00 Source: patient, RN notes reviewed, old records reviewed Mode of arrival: ambulatory Limitations: no limitations - History of Present Illness Initial comments: Patient is a 58-year-old male who presents emergency Department complaining of right lower extremity pain. States he feels pain along the muscles of the posterior aspect of his right leg, behind his right knee as well as in the right calf. Patient recently had a heart catheterization with access through his right wrist 2 weeks ago. Has been progressing well and is due to follow up with cardiology tomorrow. However after a long trip to [place] and back yesterday he began experiencing the symptoms and the posterior aspect of his right leg. Describes him as a tightening and pulling, worse with certain movements such as full flexion. Distally little walk without issue. No history of blood clots. Is only on aspirin and Plavix but no other blood thinners. Denies any chest pain, shortness of breath, fevers, chills, cough, abdominal pain. No other acute complaints at this time. Presents for further evaluation at this time. He spoke with his PCP Dr. Choudhary who recommended he come here for venous duplex to rule out DVT. Patient states that his insertion site for the catheterization is been healing well and is not causing him any symptoms including no pain, no swelling.Patient is a history of hypertension, hyperlipidemia, diabetes. Has been on aspirin and Plavix. Had a cardiac catheterization via right radial artery with stent placed on March 27 of this year. - Related Data Home Medications Medication Instructions Recorded Confirmed metFORMIN HCL [Glucophage] 1,000 mg PO BID 08/04/14 03/27/23 Cholecalciferol (Vitamin D3) 5,000 unit PO DAILY 05/31/18 03/27/23 [Vitamin D3] Multivit-Min/FA/Lycopen/Lutein 1 tab PO DAILY 05/31/18 03/27/23 [Centrum Silver Tablet] hydroCHLOROthiazide [Hydrodiuril] 25 mg PO AC-BRKFST 05/31/18 03/27/23 lisinopriL 40 mg PO DAILY 05/31/18 03/27/23 L.acidoph,Paracasei, B.lactis 1 each PO DAILY 02/09/22 03/27/23 [Probiotic] Omeprazole 20 mg PO Q48H 02/09/22 03/27/23 Aspirin 81 mg PO DAILY 03/22/23 03/27/23 Cinnamon Bark [Cinnamon] 500 mg PO BID 03/22/23 03/27/23 Unk Fiber Capsule 2 capsule PO DAILY 03/22/23 03/27/23 Unk Fiber Capsule 3 cap PO HS 03/22/23 03/27/23 glipiZIDE [glipiZIDE ER] 5 mg PO DAILY 03/22/23 03/27/23 Previous Rx's Medication Instructions Recorded Ibuprofen [Motrin] 600 mg PO Q6HR PRN #40 day 05/31/18 Atorvastatin [Lipitor] 80 mg PO DAILY #90 tab 03/28/23 Clopidogrel [Plavix] 75 mg PO DAILY #90 tab 03/28/23 Nitroglycerin Sl Tabs [Nitrostat] 0.4 mg SUBLINGUAL Q5M PRN #25 tab 03/28/23 Allergies Allergy/AdvReac Type Severity Reaction Status Date / Time No Known Allergies Allergy Verified 04/12/23 14:31 Review of Systems ROS Statement: Those systems with pertinent positive or pertinent negative responses have been documented in the HPI. Review of Systems: CONST: Denies fever EYES: Denies blurry vision ENT: Denies nasal congestion C/V: Denies Chest pain RESP: Denies shortness of breath GI: Denies abdominal pain : Denies dysuria SKIN: Denies rash. MSK: Endorses right leg pain NEURO: Denies headache ROS Other: All systems not noted in ROS Statement are negative. Past Medical History Past Medical History: Coronary Artery Disease (CAD), Chest Pain / Angina, Diabetes Mellitus, GERD/Reflux, Hyperlipidemia, Hypertension, Prostate Disorder Additional Past Medical History / Comment(s): CHRONIC BACK PAIN-DDD, recent stress test and ECHO. History of Any Multi-Drug Resistant Organisms: None Reported Past Surgical History: Heart Catheterization With Stent, Orthopedic Surgery, Prostate Surgery Additional Past Surgical History / Comment(s): arthroscopy left knee, COLONOSCOPY, PLATE IN ARM AND THEN REMOVED AGE 9 Past Anesthesia/Blood Transfusion Reactions: No Reported Reaction Past Psychological History: No Psychological Hx Reported Smoking Status: Former smoker Past Alcohol Use History: Occasional Past Drug Use History: Marijuana - Past Family History Father Family Medical History: Cancer General Exam - General Exam Comments Initial Comments: General: Appears in no acute distress. HEAD: Normal with no signs of head trauma. EYES: PERRLA, EOMI, conjunctiva normal, no discharge. ENT: Hearing grossly intact, normal oropharynx. RESPIRATORY: Clear breath sounds bilaterally. No wheezes, rales, or rhonchi. No hypoxia or dyspnea. C/V: Regular rate and rhythm. S1 and S2 auscultated, no peripheral edema, peripheral pulses 2+ and intact throughout ABD: Abd is soft, nontender, nondistended EXT: Normal range of motion, no obvious deformity. No obvious leg swelling or edema. Normal range of motion. Pain with full flexion of the right knee. Also tender to palpation in the popliteal space with no obvious swelling. SKIN: No rashes or lesions observed on exposed skin. NEURO: Alert and oriented 4. No focal sensory or strength deficits. Limitations: no limitations Course Vital Signs 04/12/23 04/12/23 14:28 17:41 Temperature 99.2 F 98.4 F Pulse Rate 76 68 Respiratory 20 16 Rate Blood Pressure 121/69 123/78 O2 Sat by Pulse 98 97 Oximetry Medical Decision Making - Medical Decision Making Was pt. sent in by a medical professional or institution (, PA, FUR EXAMINER, urgent care, hospital, or [facility]...) When possible be specific @ -No Did you speak to anyone other than the patient for history (EMS, parent, family, police, friend...)? What history was obtained from this source @ -No Did you review nursing and triage notes (agree or disagree)? Why? @ -I reviewed and agree with nursing and triage notes, except the patient's cardiac catheterization site was in the right wrist and not the right groin. There is no complication at the catheterization site. There is also no mass located in the right leg or right arm. Were old charts reviewed (outside hosp., previous admission, EMS record, old EKG, old radiological studies, urgent care reports/EKG's, [facility] records)? Report findings @ -Old charts reviewed from cardiac cath. Differential Diagnosis (chest pain, altered mental status, abdominal pain women, abdominal pain men, vaginal bleeding, weakness, fever, dyspnea, syncope, headache, dizziness, GI bleed, back pain, seizure, CVA, palpatations, mental health, musculoskeletal)? @ -DVT, muscle strain, muscle sprain, Spear's cyst. This list is not all inclusive. EKG interpreted by me (3pts min.). @ -None done X-rays interpreted by me (1pt min.). @ -None done CT interpreted by me (1pt min.). @ -None done U/S interpreted by me (1pt. min.). @ -Right lower extremity duplex negative for DVT, confirmed with radiology read. What testing was considered but not performed or refused? (CT, X-rays, U/S, labs)? Why? @ -None What meds were considered but not given or refused? Why? @ -Patient declines analgesic medications at this time. Did you discuss the management of the patient with other professionals (professionals i.e. , PA, FUR EXAMINER, lab, RT, psych nurse, medical social worker, bus aide, teacher, special technical operations officer, director of casework)? Give summary @ -No Was smoking cessation discussed for >3mins.? @ -No Was critical care preformed (if so, how long)? @ -No Were there social determinants of health that impacted care today? How? (Homelessness, low income, unemployed, alcoholism, drug addiction, transportation, low edu. Level, literacy, decrease access to med. care, [facility], rehab)? @ -No Was there de-escalation of care discussed even if they declined (Discuss DNR or withdrawal of care, Hospice)? DNR status @ -No What co-morbidities impacted this encounter? (DM, HTN, Smoking, COPD, CAD, Cancer, CVA, ARF, Chemo, Hep., AIDS, mental health diagnosis, sleep apnea, morbid obesity)? @ -None Was patient admitted / discharged? Hospital course, mention meds given and route, prescriptions, significant lab abnormalities, going to OR and other pertinent info. @ -Based on patient's presentation and physical exam, I'm concerned for possible DVT in the right lower extremity. Cannot rule out muscle strain or sprain or possible Spear cyst either. Patient's heart catheterization site appears well-healed. We will obtain a venous duplex ultrasound of right lower extremity. Patient declines analgesic medications. No concern for PE at this time as he has no symptoms. Denies any shortness of breath, chest pain. He was in agreement this plan. Vital signs within acceptable limits. Ultrasound duplex negative for DVT. I updated the patient. He expressed understanding. We discussed the likely has a muscle strain but he should ice it, use [id number] analgesic medications, and elevated. He should follow up with his PCP and strict return precautions were discussed. He was in agreement this plan. I instructed the patient to follow up with their PCP in the next 1-3 days. I explained that the patient should return to the emergency department if they experience any worsening symptoms. Strict return precautions were discussed with the patient. The patient expressed understanding of these instructions. I answered all questions that the patient had. The patient was discharged home in good condition with their prescriptions and follow up information. Undiagnosed new problem with uncertain prognosis? @ -No Drug Therapy requiring intensive monitoring for toxicity (Heparin, Nitro, Insulin, Cardizem)? @ -No Were any procedures done? @ -No Diagnosis/symptom? @ -Muscle strain, right lower extremity Acute, or Chronic, or Acute on Chronic? @ -Acute Uncomplicated (without systemic symptoms) or Complicated (systemic symptoms)? @ -Uncomplicated Side effects of treatment? @ -none Exacerbation, Progression, or Severe Exacerbation] @ -no Poses a threat to life or bodily function? @ -no Disposition Clinical Impression: Muscle strain Disposition: HOME SELF-CARE Condition: Good Instructions (If sedation given, give patient instructions): Muscle Strain (ED) Is patient prescribed a controlled substance at d/c from ED?: No Referrals: Vik Choudhary DO [Primary Care Provider] - 1-2 days Time of Disposition: 17:18
--- NOTE | 2023-04-12 17:13 | US ---
EXAMINATION TYPE: US venous doppler duplex LE RT DATE OF EXAM: 04/12/2023 4:58 PM COMPARISON: NONE CLINICAL INDICATION: Male, 58 years old with history of eval for dvt; Pain SIDE PERFORMED: Right TECHNIQUE: The lower extremity deep venous system is examined utilizing real time linear array sonog katelin with graded compression, doppler sonography and color-flow sonography. VESSELS IMAGED: Common Femoral Vein Deep Femoral Vein Greater Saphenous Vein * Femoral Vein Popliteal Vein Small Saphenous Vein * Proximal Calf Veins (* superficial vessels) Right Leg: Negative for DVT IMPRESSION: 1. Right lower extremity ultrasound negative for deep venous thrombosis.
[2023-04-12 17:43] VITALS: BP 123/78; PULSE 68; RESP 16; TEMP 98.4
== END 2023-04-12 17:45 | disposition home or self-care (01) ==
LOC: EC 13:54
DX: S86.911A Strain of unspecified muscle(s) and tendon(s) at lower leg level, right leg, initial encounter (principal); E11.9 Type 2 diabetes mellitus without complications; I10 Essential (primary) hypertension; I25.10 Atherosclerotic heart disease of native coronary artery without angina pectoris; F12.90 Cannabis use, unspecified, uncomplicated; K21.9 Gastro-esophageal reflux disease without esophagitis; Z79.82 Long term (current) use of aspirin; Z79.84 Long term (current) use of oral hypoglycemic drugs; Z79.899 Other long term (current) drug therapy; Z87.891 Personal history of nicotine dependence; X50.9XXA Other and unspecified overexertion or strenuous movements or postures, initial encounter
CPT/HCPCS: 99284

== ENCOUNTER → 2024-08-06 | Outpatient (CLI) | payer MEDICARE ==
--- NOTE | 2024-08-07 08:14 | CA ---
Transthoracic Echo Report Name: Michele Saxena Age: 59 Gender: M : 1965 Exam Date: 08/06/2024 15:15 Exam Location: [facility] Ht (in): 72 Wt (lb): 230 Ordering Physician: Vik Choudhary DO Attending/Referring Phys: Vik Choudhary DO Director [employer] [place] RDCS Procedure CPT: Indications: R07.89 chest pain Cardiac Hx: stent Technical Quality: Good Contrast 1: Total Dose (mL): Contrast 2: Total Dose (mL): MEASUREMENTS (Male / Female) Normal Values 2D ECHO LV Diastolic Diameter PLAX 4.7 cm 4.2 - 5.9 / 3.9 - 5.3 cm LV Systolic Diameter PLAX 3.2 cm IVS Diastolic Thickness 1.3 cm 0.6 - 1.0 / 0.6 - 0.9 cm LVPW Diastolic Thickness 1.2 cm 0.6 - 1.0 / 0.6 - 0.9 cm LV Relative Wall Thickness 0.5 RV Internal Dim ED PLAX 3.9 cm LA Systolic Diameter LX 3.8 cm 3.0 - 4.0 / 2.7 - 3.8 cm LV Diastolic Volume MOD BP 177.4 cm??? 67 - 155 / 56 - 104 cm??? LV Systolic Volume MOD BP 55.3 cm??? - 58 / 19 - 49 cm??? LV Ejection Fraction MOD BP 68.8 % >= 55 % LV Cardiac Index MOD BP 3722.8 cm???/min???m??? LV Diastolic Volume MOD 4C 179.4 cm??? LV Systolic Volume MOD 4C 76.8 cm??? LV Ejection Fraction MOD 4C 57.2 % LV Cardiac Index MOD 4C 3127.8 cm???/min???m??? LV Diastolic Length 4C 8.9 cm LV Systolic Length 4C 7.1 cm LV Diastolic Volume MOD 2C 160.7 cm??? LV Systolic Volume MOD 2C 51.4 cm??? LV Ejection Fraction MOD 2C 68.0 % LV Cardiac Index MOD 2C 3333.9 cm???/min???m??? LV Diastolic Length 2C 9.0 cm LV Systolic Length 2C 6.8 cm LA Volume 77.7 cm??? 18 - 58 / 22 - 52 cm??? LA Volume Index 33.4 cm???/m??? 16 - 28 cm???/m??? M-MODE Aortic Root Diameter MM 3.8 cm AV Cusp Separation MM 2.5 cm DOPPLER AV Peak Velocity 155.1 cm/s AV Peak Gradient 9.6 mmHg MV Area PHT 3.0 cm??? Mitral E Point Velocity 83.6 cm/s Mitral A Point Velocity 91.5 cm/s Mitral E to A Ratio 0.9 MV Deceleration Time 250.9 ms FINDINGS Left Ventricle Left ventricular ejection fraction is estimated at 55-60 %. Left ventricular cavity size normal. Mildly increased septal wall thickness. Mildly increased left ventricular diastolic volume. Right Ventricle Moderate right ventricular dilatation. Unable to estimate the right ventricular systolic pressure. Right Atrium Normal right atrial size. No right atrial thrombus or mass seen. Left Atrium Mildly increased left atrial volume. Mildly increased left atrial area. No left atrial thrombus or mass present. Mitral Valve Structurally normal mitral valve. Mitral annular calcification. No evidence for mitral valve prolapse. No mitral stenosis. Aortic Valve Trileaflet aortic valve. No aortic valve stenosis or regurgitation. Tricuspid Valve Structurally normal tricuspid valve. No tricuspid stenosis, regurgitation or prolapse. Pulmonic Valve Structurally normal pulmonic valve. No pulmonic regurgitation. Pericardium No pericardial or pleural effusion. Aorta Mild aortic dilatation at the level of the sinuses of valsalva 38 mm CONCLUSIONS Normal LV size and systolic function. Mild to moderate right ventricular enlargement. Mitral annular calcification and aortic valve sclerosis without restriction. Mild mitral and tricuspid regurgitation. No pericardial effusion Previewed by: Dr. Tc Juárez MD (Electronically Signed) Final Date: 07 August 2024 08:13
== END | disposition home or self-care (01) ==
LOC: RADECHMAIN 15:10
PROVIDERS: ATTEND Family Medicine
DX: I08.1 Rheumatic disorders of both mitral and tricuspid valves (principal); R07.89 Other chest pain
CPT/HCPCS: 93306

== ENCOUNTER → 2024-08-23 | Outpatient (CLI) | payer MEDICARE ==
--- NOTE | 2024-08-23 14:22 | CTL ---
EXAMINATION TYPE: CT Low Dose Lung DATE OF EXAM ORDERED: 08/23/2024 COMPARISON: Chest radiograph 08/08/2024 CLINICAL INDICATION: Male, 59 years old with history of Z12.2 ENCNTR SCREEN FOR MALIGNANT NEOPLASM OF RESP; PHH, Former smoker quit 10 years ago. smoked 1-1/2 PPD x35 years., Lung cancer screening, Hist ory of Smoking/tobacco use. TECHNIQUE: Low dose computed tomography scan was performed through the chest at 1 mm thick sections a nd reconstructed images in multiple planes at 1 mm and [address] DLP: 168.[address] CTDI: 4.1 mGy Automated exposure control for dose reduction was used. CT DIAGNOSTIC QUALITY: Satisfactory FINDINGS: Nodules: Left upper lobe 2.9 mm solid pulmonary nodule (series 6, image 19). LUNGS: COPD: Severity: None Fibrosis: Severity: None Lymph nodes: None Other findings: None RIGHT PLEURAL SPACE: Effusion: None Calcification: None Thickening: None Pneumothorax: None LEFT PLEURAL SPACE: Effusion: None Calcification: None Thickening: None Pneumothorax: None HEART: Heart Size: Normal Coronary Calcification: Moderate, most prominent along the LAD. Pericardial Effusion: None OTHER FINDINGS: Upper abdomen: None Bony thorax: Multilevel anterior spurring of the thoracic spine. Supraclavicular region: None Other: Bilateral gynecomastia. Mild atherosclerotic calcification of the aortic arch. IMPRESSION: Left upper lobe pulmonary nodule measuring less than [address] LUNG RAD AND [address] CHEST RECOMMENDATION: Lung-Rad 2 Benign Appearance or Behavior: Continue annual sc reening with LDCT in 12 months. S Modifier (other clinically significant findings): None [facility], , 08/23/2024 2:19 PM
== END | disposition home or self-care (01) ==
LOC: RADCTMAIN 13:44
PROVIDERS: ATTEND Internal Medicine
DX: Z12.2 Encounter for screening for malignant neoplasm of respiratory organs (principal); R91.1 Solitary pulmonary nodule; Z87.891 Personal history of nicotine dependence
CPT/HCPCS: 71271

== ENCOUNTER → 2024-09-03 | Outpatient (CLI) | payer MEDICARE ==
--- NOTE | 2024-09-10 06:33 | P.PCN ---
Date of Procedure: 09/03/24 Operative Findings: Home sleep study testing Date of service is 09/03/2024 Pertinent history This is a 59-year-old male patient suspected to have obstructive sleep apnea. No home sleep study was ordered accordingly. He is known to have coronary artery disease, previous coronary stenting, ischemic cardiomyopathy, diabetes mellitus type 2, acid reflux, hyperlipidemia, hypertension and mild to moderate mitral valve regurgitation. He is a former smoker carries [id number] smoking history. Pertinent physical findings Weight is 238 pounds with a body mass index of 32.3 Technical description The [employer] system was used to complete his home sleep study. This is a type III home sleep study evaluation. The total recording duration was 7 hours and 45 minutes. The study was started at 9:02 PM and ended at 4:47 AM. There was a total of 7 hours and 33 minutes of flow monitoring and oxygen s aturation monitoring. Results Respiratory analysis showed a total of 5 obstructive apneas and 52 obstructive hypopneas. Resulting AHI was 7.5 with an AHI of 13.7 while being in a supine body position. Oxygenation analysis No significant nocturnal oxygen saturation encountered Cardiac summary Average heart rate was 67 with a minimum heart rate of 57 and the maximum heart rate of 96 Assessment Mild EZEKIEL with an AHI of 7.5. No evidence of any nocturnal oxygen desaturations BMI of 32.3 Coronary artery disease Diabetes mellitus type 2 Hypertension Hyperlipidemia Ischemic cardiomyopathy Plan Mild obstructive sleep apnea. Will offer conservative measures of weight loss and optimizing sleep hygiene measures Optimize comorbidities Monitor clinically Consider treatment with CPAP only if he is symptomatic and/or his condition gets worse over time.
== END ==
LOC: 3 N SLEEP 16:48
PROVIDERS: ATTEND Internal Medicine Critical Care Medicine
DX: G47.33 Obstructive sleep apnea (adult) (pediatric) (principal); Z68.32 Body mass index [BMI] 32.0-32.9, adult; I25.10 Atherosclerotic heart disease of native coronary artery without angina pectoris; E11.9 Type 2 diabetes mellitus without complications; I10 Essential (primary) hypertension; E78.5 Hyperlipidemia, unspecified; I25.5 Ischemic cardiomyopathy; Z87.891 Personal history of nicotine dependence; Z79.84 Long term (current) use of oral hypoglycemic drugs; Z79.899 Other long term (current) drug therapy; Z79.01 Long term (current) use of anticoagulants; Z79.82 Long term (current) use of aspirin